=== PATIENT | female | born 1950 | race American Indian/Alaskan Native ===

== ENCOUNTER 2017-08-01 12:40 | Outpatient (CLI) | payer OTHER, MEDICARE ==
--- NOTE | 2017-08-01 15:25 | XRay Report ---
XRAY RIGHT KNEE 3 THREE VIEWS: 08/01/17 12:40:00 CLINICAL: Status post right knee replacement. FINDINGS: AP, oblique and lateral views only were obtained since she was unable to tolerate a sunrise view. Status post total shoulder replacement with normal appearance of the prosthesis. No fracture or dislocation. No joint effusion. IMPRESSION: Normal study status post total joint replacement.
== END 2017-08-01 12:41 | disposition home or self-care (01) ==
LOC: SPVIMAG 12:40
PROVIDERS: ATTEND Orthopaedic Surgery Sports Medicine
DX: Z47.1 Aftercare following joint replacement surgery (principal); M19.019 Primary osteoarthritis, unspecified shoulder; Z96.651 Presence of right artificial knee joint